=== PATIENT | female | born 1985 | race American Indian/Alaskan Native ===

== ENCOUNTER 2017-04-02 21:24 | Emergency (ER) | payer BC, OTHER ==
[2017-04-02 22:45] VITALS: BMI 34.3
[2017-04-02] MEDS ORDERED: Lactated Ringer's 1,000 ML IV SCH (22:45)
--- NOTE | 2017-04-02 23:12 | OBHP ---
Datetime: 04/02/2017 22:47 IP Adm Impression: , intrauterine ; No Active Labor; Intact Membranes IP Chief Complaint Other: diarrhea IP Admit Plan: Discharge home Admit Comment, IP Provider: This is a 31 y/o at 35.2 weeks GA complaining of diarrhea that beg an 1 week agp. diarrhea is non-bloody, watery, yellowish and 1-2 episodes per day. Pt has been drinki ng vitamin water. Pt visited Dr Villalta this morning who recommended her to be monitored at ER. Pt a febrile, tolerating PO and reports + FM. Pt denies H/A, N/V, abdominal pain, regular frequent CTXs, v aginal bleeding. LOF or dysuria. Allergies: amoxicilin-hives agter ingestion. Medications: PNV and PRN Albuterol. PMHx: asthma. PSHx: denied. OBHx: , 2x spontaneous . SHx: No tobacco, alcohol or rec drugs. A_P: IUP at 35.2 weeks GA with diarrhea. IV fluid will be initiated. Pt stable, will be discharged after FHT monitoring and IV fluid. Pt instructed to be followed up w / PMD. PTL precautions discussed. Case discussed with OB correction officer supervisor Dr. Pinto. Kentrell Laws PGY-1. The patient was seen with the resident I agree with note External monitor, observation, IV fluid hydration Discharged home with labor precautions and movement counts Pelvic Type - PN: Adequate Extremities - PN: Normal Abdomen - PN: Normal Back - PN: Normal Breast - PN: Not Done Lungs - PN: Normal Heart - PN: Normal Thyroid - PN: Normal Neurologic - PN: Normal HEENT - PN: Normal General - PN: Normal FHR - Baseline A Provider: 150 Gestation - Est Wks by US: 35.2 EGA AdmitDate IP: 35.2 Vital Signs Provider: Reviewed; Within Normal Limits IP Chief Complaint: Maternal discomfort NICHD Variability Prov Fetus A: Moderate 6-25bpm NICHD Accel Fetus A IP Provider: 15X15 FHR Category Provider Fetus A: Category I Dilatation, Provider: 0 Effacement, Provider: 0 Station, Provider: -2 Genitourinary Exam: Normal DTRs - PN: Normal
== END 2017-04-05 22:30 | disposition home or self-care (01) ==
LOC: H.EROB2 21:24
DX: O99.89 Other specified diseases and conditions complicating pregnancy, childbirth and the puerperium (principal); R19.7 Diarrhea, unspecified; O99.513 Diseases of the respiratory system complicating pregnancy, third trimester; J45.909 Unspecified asthma, uncomplicated; Z3A.35 35 weeks gestation of pregnancy
CPT/HCPCS: 96360; 99283; J7120

== ENCOUNTER 2017-04-05 21:11 | Emergency (ER) | payer BC, OTHER ==
--- NOTE | 2017-04-05 23:06 | OBHP ---
Datetime: 04/05/2017 21:34 IP Adm Impression: Term, intrauterine ; Intact Membranes IP Admit Plan: Observation/Evaluation Admit Comment, IP Provider: 31yo IUP at 35w c/o lower abd pain since last night. midline no n-radiating; regular last night but much less now. No SROM. no VB. +FM care: CP Dr Greenfield/ cahrt rev'd POBH: x 1 ; TOP x 2 PGYNH: denies STD PMH: asthma PSH: denies NKA A: IUP at 35w not in labor PLAN: contineu montioring and discharge home after NST done labor instructoins; pre-eclampsia warning. f/u next week Dr Villalta Pelvic Type - PN: Adequate Extremities - PN: Normal Abdomen - PN: Normal Back - PN: Normal Breast - PN: Not Done Lungs - PN: Normal Heart - PN: Normal Thyroid - PN: Normal Neurologic - PN: Normal HEENT - PN: Normal General - PN: Normal Presentation-Admit: Vertex IP Fetus A Comments: sonogram cephalic FHR - Baseline A Provider: 160 Membranes, Provider: Intact Contraction Comments Provider: none Comments, ACOG Physical Exam: ROS: General: no weakness; no fatigue HEENT: no GOLD; no visual dist CV: no palpitations; no no CP GI: no N/V no diarhea No epigastric pain; non radiating : no F/U/D MS: No joint pain Pool Provider: Negative IP Hx Assessment: The History has been Reviewed and is Current EGA AdmitDate IP: 35.5 IP Chief Complaint: Uterine contractions NICHD Variability Prov Fetus A: Moderate 6-25bpm NICHD Accel Fetus A IP Provider: 15X15 FHR Category Provider Fetus A: Category I NICHD Decel Fetus A IP Provider: None Dilatation, Provider: 0 Effacement, Provider: 0 Genitourinary Exam: Normal DTRs - PN: Normal
--- NOTE | 2017-04-05 23:09 | OBDCSUM ---
Datetime: 04/05/2017 22:29 Discharged to, Provider: Home Follow up at, Provider: Dr. Villalta Disch Instr Activity: Normal activity Disch Instr Diet: Regular Discharge Diet restrict Prov: DRINK A LOT OF WATER Discharge Diagnosis, Provider: False Labor - Undelivered Discharge Time: 04/05/2017 22:30 Follow up in weeks, Provider: Friday for scheduled appointment Disch Referrals: None
== END 2017-04-05 22:30 | disposition home or self-care (01) ==
LOC: H.EROB2 21:11
DX: O47.03 False labor before 37 completed weeks of gestation, third trimester (principal); Z3A.35 35 weeks gestation of pregnancy

== ENCOUNTER 2017-04-16 16:17 | Emergency (ER) | payer BC, OTHER ==
[2017-04-16 16:57] VITALS: BMI 33.9
[2017-04-16] MEDS ORDERED: Lactated Ringer's 1,000 ML IV SCH (17:00)
[2017-04-16 17:45] LABS: ALB/GLOB RATIO 1.2 (1.0-2.1); ALBUMIN 3.3 g/dL (3.5-5.0); ALT/SGPT 24 U/L (9-52); AST/SGOT 18 U/L (14-36); BLOOD UREA NITROGEN 6 mg/dl (7-17); CALCIUM 8.7 mg/dL (8.4-10.2); GFR AFRICAN-AMERICAN > 60; GFR NON-AFRICAN AMERICAN > 60; HEMOGLOBIN 10.8 g/dL (12.0-16.0); MEAN CELL VOLUME 83.4 fl (81.0-99.0); MEAN CORPUSCULAR HEMOGLOBIN 26.7 pg (27.0-31.0); RBC 4.06 Mil/uL (3.80-5.20); WHITE BLOOD COUNT 6.8 K/uL (4.8-10.8)
[2017-04-16 17:55] LABS: SQUAMOUS EPITHIAL 1 /hpf (0-5); URINE BACTERIA RARE (<OCC); URINE BILIRUBIN NEGATIVE (NEGATIVE); URINE BLOOD NEGATIVE (NEGATIVE); URINE CLARITY SLIGHTY-CLOUDY (Clear); URINE COLOR YELLOW (YELLOW); URINE GLUCOSE (UA) NEG (Normal); URINE LEUKOCYTE ESTERASE NEG Leu/uL (Negative); URINE NITRATE NEGATIVE (NEGATIVE); URINE PROTEIN 30 mg/dL (NEGATIVE)
[2017-04-16 22:46] VITALS: BP 121/75; PULSE 70; RESP 18; TEMP 98.6; O2SAT 100
--- NOTE | 2017-04-17 06:28 | OBHP ---
Datetime: 04/16/2017 18:11 IP Adm Impression: Term, intrauterine ; No Active Labor IP Admit Plan: Observation/Evaluation; Discharge home Admit Comment, IP Provider: 27 y/o female at at 37.2 with pmhx of asthma presenting to [facility] for prolong monitoring. Pt was sent by her LATEX DIPPER (Dr. Villalta), as pt reported decreased m ovement. In adarsh, she reports having urinary frequency and also having a lot of back pain. denies any dysuria, fever, chills, nausea or vomiting, headaches or visual changes. No other complaints otherwi se PMHX: Asthma Allergies: Amoxicillin- Hives OB history: -2 elective abortions 1st no complications Reports this was initially a twin gestation, but later confirmed to be a houser. No o ther complications otherwise A/P 27y/o at 37.2 with decrease movement Prolong montoring for obtain Urine for UA and urine culture Cbc, cmp Bolus fluid to keep hydrated at 18:00PM pt's labs and strip were reviewed tracing was very reactive UA shows no evidence of UTI, will follow up urine culture Pt will be discharged home, advised to follow up with her LATEX DIPPER in a week Ludivina R. PGY 3 The patient was seen with resident I agree with the notes. She will be discharged home with precau tions and kick counts follow up with Dr. Villalta in 1 week and NST reactive FHR - Baseline A Provider: 140 EGA AdmitDate IP: 37.2 Vital Signs Provider: Reviewed IP Chief Complaint: Decreased movement NICHD Variability Prov Fetus A: Moderate 6-25bpm NICHD Accel Fetus A IP Provider: 15X15 FHR Category Provider Fetus A: Category I NICHD Decel Fetus A IP Provider: None
== END 2017-04-16 18:05 | disposition home or self-care (01) ==
LOC: H.EROB2 16:17
DX: O47.1 False labor at or after 37 completed weeks of gestation (principal); Z3A.37 37 weeks gestation of pregnancy; Z36 Encounter for antenatal screening of mother
CPT/HCPCS: 80053; 81003; 85027; 87086; 99283; J7120

== ENCOUNTER 2017-04-17 15:30 | Inpatient (IN) | payer BC, OTHER ==
[2017-04-16 16:57] VITALS: BMI 33.9
[2017-04-17] MEDS ORDERED: Lactated Ringer's 1,000 ML IV ONE (16:00)
--- NOTE | 2017-04-17 16:41 | OBADHP ---
Datetime: 04/17/2017 16:36 Admit Comment, IP Provider: 31 yo at 37+3 wks, w/ ruptured membranes, in active labor, admit hafsa to L_D. Will start IVF for variable decelerations. GBS negative. H_P dictated, "[id number]" Abdomen - PN: Normal General - PN: Normal FHR - Baseline A Provider: 160s Amniotic Fluid Color, Provider: Clear Membranes, Provider: Ruptured Contraction Comments Provider: 2-5 Vital Signs Provider: Reviewed; Within Normal Limits IP Chief Complaint: Uterine contractions; Suspected ruptured membranes NICHD Variability Prov Fetus A: Moderate 6-25bpm NICHD Accel Fetus A IP Provider: 15X15 FHR Category Provider Fetus A: Category II NICHD Decel Fetus A IP Provider: Variable Dilatation, Provider: 6-7 Effacement, Provider: 80 Station, Provider: -1 Genitourinary Exam: Normal EGA AdmitDate IP: 37.3 IP Adm Impression: Term, intrauterine IP Admit Plan: Initiate labor protocol Datetime: 04/05/2017 21:34 Pelvic Type - PN: Adequate Extremities - PN: Normal Back - PN: Normal Breast - PN: Not Done Lungs - PN: Normal Heart - PN: Normal Thyroid - PN: Normal Neurologic - PN: Normal HEENT - PN: Normal Presentation-Admit: Vertex IP Fetus A Comments: sonogram cephalic Comments, ACOG Physical Exam: ROS: General: no weakness; no fatigue HEENT: no GOLD; no visual dist CV: no palpitations; no no CP GI: no N/V no diarhea No epigastric pain; non radiating : no F/U/D MS: No joint pain Pool Provider: Negative IP Hx Assessment: The History has been Reviewed and is Current DTRs - PN: Normal Datetime: 04/02/2017 22:47 IP Chief Complaint Other: diarrhea Gestation - Est Wks by US: 35.2
[2017-04-17 16:44] LABS: BASO % 0.5 % (0.0-2.0); EOS # 0.1 K/uL (0.0-0.7); HEMOGLOBIN 11.7 g/dL (12.0-16.0); LYMPH % 24.2 % (20.0-40.0); MEAN CELL VOLUME 82.7 fl (81.0-99.0); MEAN CORPUSCULAR HEMOGLOBIN 26.6 pg (27.0-31.0); MEAN CORPUSCULAR HGB CONC 32.2 g/dL (33.0-37.0); MEAN PLATELET VOLUME 9.6 fl (7.2-11.7); MONO # 0.7 K/uL (0.0-0.8); MONO % 8.4 % (0.0-10.0); NEUT # 5.4 K/uL (1.8-7.0); NEUT % 65.9 % (50.0-75.0); NRBC % 0.1 % (0.0-0.0); RBC 4.39 Mil/uL (3.80-5.20); RED CELL DISTRIBUTION WIDTH 14.8 % (11.5-14.5); WHITE BLOOD COUNT 8.1 K/uL (4.8-10.8)
[2017-04-17] MEDS ORDERED: Lidocaine 1% Inj (20ml) ONE (17:05)
[2017-04-17] MEDS ORDERED: Oxytocin 30 units/LR 500ML 30 U/500 ML BAG IV ONE (17:12)
[2017-04-17] MEDS ORDERED: Lactated Ringer's 1,000 ML IV SCH (17:45)
[2017-04-17 17:54] VITALS: O2SAT 100
[2017-04-17] MEDS ORDERED: Oxycodone/Acetaminophen 5/325 mg Tab PO PRN ×2 (19:27→20:38)
[2017-04-17] MEDS ORDERED: Oxytocin 30 units/LR 500ML 30 U/500 ML BAG IV SCH (19:27)
--- NOTE | 2017-04-17 19:39 | OBDS ---
DELIVERY PERSONNEL Nurse Stick Welder Certified: n/a Delivery Doctor: Zoila Maloney MD Scrub Nurse: n/a Acidity Tester: Darin/Letty/Perry/WGrimmCuongN Anesthesiologist: n/a Legal Records Manager: n/a Resident: n/viviana MATERNAL INFORMATION Delivery Anesthesia: None Medications in Delivery: 30 units pitocin in 500 ml lr Estimated Blood Loss (ml): 200 Placenta Cultured: No Maternal Complications: None Provider Comments: Pt progressed to complete and pushed to deliver a viable male through santos r fluid at 19:07. Apgars 9 and 9. Wt 7#1.1, 3105 gms. Double nuchal cord easily reduced. Mouth an d nares bulb-suctioned. Baby placed on mother's abdomen. Cord clamped and cut. Placenta delivered spontaneously intact w/ a 3vc at 19:15. No tears noted. Pt and baby tolerated procedure well. EBL 200mL LABOR SUMMARY EDC: 05/05/2017 00:00 No. Babies in Womb: 1 Attempted: No Labor Anesthesia: None LABOR INFORMATION Reason for Induction: Not Applicable Onset of Labor: 04/17/2017 14:53 Complete Dilatation: 04/17/2017 19:00 Oxytocin: N/A Group B Beta Strep: Negative Antibiotics # of Doses: n/a Antibiotics Time of Last Dose: n/a Steroids Given: None Reason Steroids Not Administered: Not Applicable MEMBRANES Membranes Rupture Method: Spontaneous Rupture of Membranes: 04/17/2017 14:53 Length of Rupture (hrs): 4.23 Amniotic Fluid Color: Clear Amniotic Fluid Amount: Large Amniotic Fluid Odor: Normal STAGES OF LABOR Stage 1 hrs: 4 Stage 1 min: 7 Stage 2 hrs: 0 Stage 2 min: 7 Stage 3 hrs: 0 Stage 3 min: 8 Total Time in Labor hrs: 4 Total Time in Labor min: 22 VAGINAL DELIVERY Episiotomy: None Laceration Extension: N/A Laceration Type: None Laceration Repair: Not Applicable Initial Vag Sponge Count: n/a Initial Vag Sharps Count: n/a Sponge Count Correct: N/A BABY A INFORMATION Delivery Date/Time: 04/17/2017 19:07 Method of Delivery: Vaginal Born in Route : No : N/A Forceps: N/A Vacuum Extraction: N/A Shoulder Dystocia : No SHOULDER DYSTOCIA BABY A Delivery Date/Time: 04/17/2017 19:07 PRESENTATION/POSITION BABY A Presentation: Cephalic Cephalic Presentation: Vertex Breech Presentation: N/A PLACENTA INFORMATION BABY A Placenta Delivery Time : 04/17/2017 19:15 Placenta Method of Delivery: Spontaneous Placenta Status: Delivered SCORES BABY A Heart Rate 1 min: >100 bpm Resp Effort 1 min: Good Cry Reflex Irritability 1 min: Cough or Sneeze or Pulls Away Muscle Tone 1 min: Active Motion Color 1 min: Body [place], Extremities Blue Resuscitation Effort 1 min: Tactile Stimulation SCORE 1 MIN: 9 Heart Rate 5 min: >100 bpm Resp Effort 5 min: Good Cry Reflex Irritability 5 min: Cough or Sneeze or Pulls Away Muscle Tone 5 min: Active Motion Color 5 min: Body [place], Extremities Blue Resuscitation Effort 5 min: N/A SCORE 5 MIN: 9 INFANT INFORMATION BABY A Gestational Age at Delivery: 37.0 Gestational Status: Term Outcome : Liveborn Infant Condition : Stable Infant Sex: Male IDENTIFICATION/MEDS BABY A ID Band Number: [id number] ID Band Location: Left Leg; Left Arm Vitamin K Given : Not Given Erythromycin Given: Not Given WEIGHT/LENGTH BABY A Birthweight (gms): 3205 Weight (lb): 7 Infant Weight (oz): 1 CORD INFORMATION BABY A No. Cord Vessels: 3 Nuchal Cord : Around Neck x2, Loose Nuchal Cord Other: n/a True Knot: n/a Infant Cord pH Baby Arterial: n/a Infant Cord pH Baby Venous: n/a Cord Blood Taken: Yes Banking/Donate Info: n/a Suction: Mouth; Nose ASSESSMENT BABY A Physical Findings at Delivery: Extra Digit(s)
[2017-04-17] MEDS ORDERED: Albuterol HFA 90 mcg/actuation (8 g) IH PRN (20:45)
[2017-04-17] MEDS ORDERED: Albuterol HFA 90 mcg/actuation (8 g) IH SCH (20:45)
--- NOTE | 2017-04-18 06:48 | HP ---
HISTORY OF PRESENT ILLNESS: This is a 31-year-old G4, P1-0-2-1 at 37 weeks and 3 days with an EDC of 05/05/2017 by an 11-week ultrasound, who was brought to the OB ED by an ambulance reporting that she started leaking clear fluid at 2:53 p.m. and that painful contraction started after the water broke when she was in the ambulance. She denies vaginal bleeding and reports positive movement. The patient received her care at [facility] with Dr. Baljeet Villatla. GBS was done on 04/09/2017 and was negative. Of note, the patient has mild asthma for which she takes Ventolin HFA inhaler. PAST MEDICAL HISTORY: Asthma. PAST SURGICAL HISTORY: None. ALLERGIES: AMOXICILLIN CAUSES RASH. MEDICATIONS: Ventolin HFA p.r.n., vitamins. PAST OB HISTORY: The patient had 2 abortions in 2011, and in 2011, patient underwent a vaginal delivery of a female infant weighing 6 pounds 14 ounces. SOCIAL HISTORY: The patient denies tobacco, alcohol, or illicit drug use. INSURANCE CLAIMS PROCESSOR HISTORY: Regular periods. The patient denies any history of any STDs or any abnormal Pap. FAMILY HISTORY: Maternal grandmother from breast cancer and paternal grandmother had Alzheimer's. LABS: Hepatitis B surface antigen negative. Varicella zoster IgG positive. Blood type B positive, antibody screen negative. Hemoglobin electrophoresis within normal limits. Urine culture, no growth. RPR nonreactive. Rubella IgG is negative. AFP is negative. On 01/22/2017, 1-hour Glucola was 104. RPR was nonreactive. HIV was nonreactive. On 04/09/2017, group B Strep was negative. PHYSICAL EXAMINATION: VITAL SIGNS: Afebrile. Vital signs stable. GENERAL: The patient appears slightly uncomfortable lying in bed. ABDOMEN: Soft, nontender, gravid. EXTREMITIES: Nontender. VAGINAL: Pt appears grossly ruptured. Cervix is 6 to 7 cm, 80% effaced, -1 station at 4:15 p.m. heart tracing: Baseline is in the 160s with moderate variability. Small variable decelerations to about 120 noted. Tocodynamometer: Contractions about every 2 to 4. ASSESSMENT AND PLAN: This is a 31-year-old G4, P1 0-2-1 at 37+3 weeks and 3 days, who appears grossly ruptured, in active labor, admitted to L and D. heart tracing is reassuring. Will give IV fluid for the small variable decelerations and will observe GBS negative. Blaine Maloney MD MTDDivya
[2017-04-18 07:32] LABS: HEMOGLOBIN 10.7 g/dL (12.0-16.0); MEAN CELL VOLUME 82.4 fl (81.0-99.0); MEAN CORPUSCULAR HEMOGLOBIN 26.6 pg (27.0-31.0); MEAN CORPUSCULAR HGB CONC 32.2 g/dL (33.0-37.0); RBC 4.03 Mil/uL (3.80-5.20); RED CELL DISTRIBUTION WIDTH 14.8 % (11.5-14.5)
[2017-04-18 07:46] LABS: WHITE BLOOD COUNT 12.3 K/uL (4.8-10.8)
--- NOTE | 2017-04-18 11:50 | OBPPN ---
Datetime: 04/18/2017 11:47 PP Pain Prov: Within normal limits PP Nausea Prov: Denies PP Flatus Prov: Yes PP Breasts Prov: Normal PP Heart Prov: Normal PP Lungs Prov: Normal PP Abdomen/Uterus Prov: Normal PP Lochia Prov: Normal PP Vulva/Perineum Prov: Normal PP CVA Tenderness Prov: Normal PP Extremities Prov: Normal PP Comments Phys Exam Prov: Fundus firm under umbilicus PP Impression Prov: Normal progression PP Plan Prov: Continue present management PP Progress Note Prov: Patient denies CP, no SOB, no N/V, tolerating Po diet, ambulating/voiding wel l,mild lochia, abdominal pain tolerable with meds, A/P PPD #1 1. Continue reg diet 2. Percocet/motrin prn pain 3. Encourage ambulatiion/ IP PP Procedures: None Vital Signs Provider PP: Reviewed; Within Normal Limits
--- NOTE | 2017-04-19 08:07 | OBDCSUM ---
Datetime: 04/19/2017 08:06 Discharged to, Provider: Home Follow up at, Provider: OB Disch Instr Activity: Normal activity Disch Instr Diet: Regular Discharge Instructions, Provider: Routine instructions given Discharge Diagnosis, Provider: Term Delivered Discharge Time: 04/19/2017 08:06 Follow up in weeks, Provider: 6 wks Disch Referrals: None Contraception discussed, Prov: Yes Disch Activity Restrictions: No sexual activity; Nothing in vagina - [place], tampons, douche
--- NOTE | 2017-04-19 08:07 | OBPPN ---
Datetime: 04/19/2017 08:04 PP Pain Prov: Within normal limits PP Nausea Prov: Denies PP Flatus Prov: Yes PP Breasts Prov: Normal PP Heart Prov: Normal PP Lungs Prov: Normal PP Abdomen/Uterus Prov: Normal PP Lochia Prov: Normal PP Vulva/Perineum Prov: Normal PP CVA Tenderness Prov: Normal PP Extremities Prov: Normal PP Comments Phys Exam Prov: FUndus firm under umbilicus PP Impression Prov: Normal progression PP Plan Prov: Continue present management PP Progress Note Prov: Patient denies CP, no SOB, no N/V, tolerating PO diet, ambulating/voiding wel l, mild lochia, abodminal pain tolerable with meds A/P PPD #2 1. Discharge patient home 2. Discharge instructions reviewed IP PP Procedures: None Vital Signs Provider PP: Reviewed; Within Normal Limits
[2017-04-19 18:17] VITALS: BP 104/66; PULSE 77; RESP 19; TEMP 97.6
== END 2017-04-19 13:00 | disposition home or self-care (01) | DRG 775 ==
LOC: H.EROB2 15:30 → H.L&D 16:23 → H.OB/GYN 21:11
PROVIDERS: ADMIT Obstetrics & Gynecology; ATTEND Obstetrics & Gynecology
PROC: 10E0XZZ Delivery of Products of Conception, External Approach (ICD-10-PCS; principal; 2017-04-17)
PROC: 4A1HXCZ Monitoring of Products of Conception, Cardiac Rate, External Approach (ICD-10-PCS; 2017-04-17)
DX: O76 Abnormality in fetal heart rate and rhythm complicating labor and delivery (principal); J45.909 Unspecified asthma, uncomplicated; Z37.0 Single live birth; O99.52 Diseases of the respiratory system complicating childbirth; O69.81X0 Labor and delivery complicated by cord around neck, without compression, not applicable or unspecified; Z3A.37 37 weeks gestation of pregnancy; Z80.3 Family history of malignant neoplasm of breast; Z82.0 Family history of epilepsy and other diseases of the nervous system